=== PATIENT | male | born 2000 | race Caucasian/White ===

== ENCOUNTER 2022-08-27 15:17 | Outpatient (CLI) | payer OTHER, SELFPAY ==
--- NOTE | ~2022-08-27 | XR_ITS ---
XR hand RT min 3V DATE: 08/27/2022 15:34 INDICATION: Posterior wrist and hand pain for one month TECHNIQUE: 3 views of right hand COMPARISON: None FINDINGS: No fracture or dislocation, periosteal reaction or bone destruction. Joint spaces are prese rved. No erosive change or chondrocalcinosis. IMPRESSION: Negative Reviewed, dictated and finalized at location B. [employer]CHER IMPRESSION: Negative
--- NOTE | ~2022-08-27 | XR_ITS ---
XR wrist RT min 3V DATE: 08/27/2022 15:33 INDICATION: Posterior wrist and hand pain for one month TECHNIQUE: 4 views of right wrist COMPARISON: None FINDINGS: No fracture or dislocation, periosteal reaction or bone destruction, joint space narrowing, erosive change or chondrocalcinosis. IMPRESSION: Negative Reviewed, dictated and finalized at location B. ON [employer] MARKER IMPRESSION: Negative
== END 2022-08-27 15:18 | disposition home or self-care (01) ==
LOC: CHSIMG 15:19
PROVIDERS: PCP Nurse Practitioner Family; Visit Provider Nurse Practitioner Family
DX: M79.641 Pain in right hand (principal)
CPT/HCPCS: 73110; 73130